=== PATIENT | female | born 1980 | race African-American/Black ===

== ENCOUNTER 2017-01-18 09:37 | Emergency (ER) | payer OTHER ==
[~2017-01-18] VITALS: Ht 157.5 cm; Wt 113.4 kg
[2017-01-18 09:40] VITALS: BP 148/94
[2017-01-18] MEDS ORDERED: TYLENOL325 MG PO (09:42)
[2017-01-18] MEDS ORDERED: IBUPROFEN 200200 M1 PO (09:43)
[2017-01-18] MEDS ORDERED: PENICILLIN VK500 M1 PO (09:46)
[2017-01-18] MEDS ORDERED: TORADOL 10 MG T10 MG PO (10:04)
== END 2017-01-18 10:39 | disposition home or self-care (01) ==
LOC: ER 09:37
DX: K08.89 Other specified disorders of teeth and supporting structures (principal); J45.909 Unspecified asthma, uncomplicated; Z88.6 Allergy status to analgesic agent; Z88.5 Allergy status to narcotic agent; F17.210 Nicotine dependence, cigarettes, uncomplicated